=== PATIENT | female | born 1945 | race Caucasian/White ===

== ENCOUNTER 2016-05-29 08:05 | Emergency (ER) | payer MEDICARE ==
[2016-05-29] MEDS ORDERED: PROMETHAZINE HCL 25 MG TABLET ONE (08:34)
[2016-05-29] MEDS: PROMETHAZINE HCL 25 MG TABLET PO ONE (08:36)
--- NOTE | 2016-05-29 09:38 | ERNOTE ---
Dizziness ER Record Date of Service: 05/29/16 Presenting Symptoms: vertigo Time Seen by Provider: 05/29/16 08:24 Source: patient Exam Limitations: hard of hearing Immunizations: IMMUNIZATION HX Immunizations Up to Date Yes History of Influenza Vaccine Yes Hx Pneumococcal Vaccination Yes Allergies/Adverse Reactions: Allergies Allergy/AdvReac Type Severity Reaction Status Date / Time baclofen Allergy Verified 05/29/16 08:21 Cephalosporins Allergy Verified 05/29/16 08:21 clonidine Allergy Verified 05/29/16 08:21 corn [[place]] Allergy Verified 05/29/16 08:21 indomethacin [From Indocin] Allergy Verified 05/29/16 08:21 indomethacin sodium Allergy Verified 05/29/16 08:21 [From Indocin] Penicillins Allergy Verified 05/29/16 08:21 Sulfa (Sulfonamide Allergy Verified 05/29/16 08:21 Antibiotics) [Sulfa(Sulfonamide Antibiotics)] sulfamethoxazole Allergy Verified 05/29/16 08:21 [From Bactrim DS] trimethoprim Allergy Verified 05/29/16 08:21 [From Bactrim DS] wheat Allergy Verified 05/29/16 08:21 levofloxacin [From Levaquin] AdvReac Verified 05/29/16 08:21 Home Medications: HOME MEDICATIONS Ergocalciferol (Vitamin D2) [Drisdol] 50,000 unit PO FR 07/08/13 [Last Taken 09:00] Levothyroxine Sodium [Synthroid] 100 mcg PO DAILY 07/08/13 [Last Taken 02/21/16 09:00] Simvastatin 10 mg PO DAILY 07/08/13 [Last Taken 02/21/16 09:00] Solifenacin Succinate [Vesicare] 10 mg PO DAILY 07/08/13 [Last Taken 02/21/16 09 :00] Acetaminophen [Tylenol] 325 mg PO Q4H PRN 02/22/16 [Last Taken Unknown] Pyridostigmine [place] [Mestinon] 30 mg PO BID 02/22/16 [Last Taken 02/21/16 21: 00] Albuterol Sulfate [Ventolin Hfa] 2 puff IH Q4H PRN 03/04/16 [Last Taken Unknown] Ferrous Sulfate 325 mg PO TID #90 tablet 03/07/16 [Last Taken Unknown] Multivit with [employer] [[facility]] 1 tab PO DAILY #30 tablet 03/07/16 [Last Taken Unknown] Clindamycin HCl [Cleocin HCl] 300 mg PO 05/29/16 [Last Taken Unknown] FLUoxetine HCL [Prozac] 80 mg PO 05/29/16 [Last Taken Unknown] Promethazine HCl [Phenergan] 12.5 mg PO QID PRN #15 tablet 05/29/16 [Last Taken Unknown] - History of Present Illness Narrative: Patient presents to the ED for vertigo. SHe and her report a long history of vertigo and describe seeing an neurologist for this and just having vestibulotherapy. She relates that this am her dizziness is worse with nausea. This is typical for her. This is spinning dizziness, worse with head movement. No focal new N/T/W. Worse with head movement. No new ear c/o. SHe relates this is exactly like what she has had before. Nothing different about it. It has been better after vestibulotherapy but now has [id number] worse again. No feve.r No CP or SOB, no UTI Sx or abdominal pain, no diarrhea. Episodes lasting:: Intermittent, chronic recuuring Noted on awakening:: Yes Associated Symptoms: Absent: ear pain, headache, weakness, numbness Sense of movement: Present: spinning Decreased ability to stand/walk:: Present: other - no change. States she if fine lying still in bed Modifying Factors - (Improves): Reports: other - Not turning head Modifying Factors - (Worsens): Reports: movement of head Prior Treament: Reports: other - see above Review of Systems - Review of Systems Constitutional: Absent: fever EYE: Absent: vision changes Respiratory: Absent: shortness of breath Cardiology: Absent: chest pain Gastrointestinal/Abdominal: Absent: abdominal pain Genitourinary: Absent: dysuria Neurological: Present: See HPI. Absent: weakness, numbness, tingling - Patient's Past Medical History Patient History - Medical: Other Patient History - Cardiac/Respiratory: Hypertension, Hyperlipidemia Patient History - Cancer: No Hx of Cancer Patient History - Surgical Procedures: Back Surgery, Total Knee Replacement, Other Patient History - Other: None - Family History Mother Family History - Medical: Other Family History - Cardiac/Respiratory: No pertinent hx, History Unknown Father Family History - Medical: Other Family History - Cardiac/Respiratory: No pertinent hx, History Unknown - Social History Living Situations: spouse Smoking Status: Never smoker Have you smoked in the past 12 months: No Do you dip or chew tobacco: No Patient requests Smoking Cessation Consult: No Initiate information on Smoking Cessation: No Alcohol Use: none Drug Use: none - Immunizations Immunizations Up to Date: Yes Hx Pneumococcal Vaccination: Yes History of Influenza Vaccine: Yes Physical Exam - Physical Exam General Appearance: Present: alert, no apparent distress Eye Exam: Normal inspection: bilateral, PERRL: bilateral Ears, Nose, Throat: Present: normal ENT inspection. Absent: hearing grossly normal Neck: Present: normal inspection Respiratory: Present: no respiratory distress, normal breath sounds, lungs clear Cardiovascular/Chest: Present: regular rate, rhythm, normal peripheral pulses Gastrointestinal/Abdominal: Present: normal bowel sounds, nontender, nondistended, soft. Absent: tenderness Extremity Exam: Present: other - NO calf tendenress Neurological Exam: Present: alert, normal mood/affect, other - D/T prior surgery some decreased ROM left upper leg but no unilateral focal motor or sensory deficits. No finding of acute stroke.. 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 Vital Signs: Vital Signs 05/29/16 05/29/16 08:13 08:39 Temperature 35.7 C L Pulse Rate 103 H 103 H Respiratory 20 20 Rate Blood Pressure 163/93 163/93 O2 Sat by Pulse 97 97 Oximetry - CT/Ultrasound CT/Ultrasound Narrative: Head CT negative - Progress/Reassessment Chief Complaint: Dizziness Progress Note-Subjective: 05/29/16 09:32 Patient improved after phenergan. This clinically is BPV with Sx noted on head movement. No acute motor or sensory deficits, no thing to suggest acute stroke. Head CT negative. She feels like going home. Given she has had this repeatedly I do not feel labs are needed at this time. Will add phenergan and have her follow-up. She wishes to go home. I discussed warning signs and reasons to return as well as the need for close f/u. Departure Clinical Impression: Vertigo - Departure Disposition: Home self-care Instructions: Vertigo, [id number] Additional Instructions: Rest. FLuids. Phenergan as directed. Follow-up with your primary doctor in 2 days for a re-check, call for an appointment. Return for increased pain, numbness, tingling, weakness, fever or if your condition worsens or changes in any way. Referrals: Amauri Butler MD [Primary Care Provider] - Prescriptions: Promethazine HCl [Phenergan] 12.5 mg PO QID PRN #15 tablet PRN Reason: Nausea
[2016-05-29 09:39] VITALS: BP 129/71
== END 2016-05-29 09:56 | disposition home or self-care (01) ==
LOC: ER 08:05
DX: R42 Dizziness and giddiness (principal); Z96.659 Presence of unspecified artificial knee joint